=== PATIENT | female | born 1950 | race Two or more races ===

== ENCOUNTER → 2017-12-08 | Outpatient (CLI) | payer OTHER, MEDICARE ==
[2017-12-08 11:55] LABS: TOTAL 25(OH) VITAMIN D 38.4 NG/ML (30.0-100.0)
== END ==
LOC: M LRY 07:50
DX: E03.9 Hypothyroidism, unspecified (principal); E55.9 Vitamin D deficiency, unspecified
CPT/HCPCS: 84443

== ENCOUNTER 2017-12-29 10:33 | Emergency (ER) | payer OTHER, MEDICARE ==
[2017-12-29] MEDS: NORCO, ANEXSIA 5/325MG TABLET (HYDROcodone/ACETAMINOPHEN) PO (11:23)
[2017-12-29] MEDS: IBUPROFEN 800 MG TAB PO (11:23)
== END 2017-12-29 12:16 | disposition home or self-care (01) ==
LOC: M ED 10:33
DX: S49.92XA Unspecified injury of left shoulder and upper arm, initial encounter (principal); X58.XXXA Exposure to other specified factors, initial encounter; Y92.89 Other specified places as the place of occurrence of the external cause; I10 Essential (primary) hypertension; E78.70 Disorder of bile acid and cholesterol metabolism, unspecified; E07.9 Disorder of thyroid, unspecified; Z86.711 Personal history of pulmonary embolism; Z98.890 Other specified postprocedural states; Z79.890 Hormone replacement therapy; Z79.899 Other long term (current) drug therapy
CPT/HCPCS: 73030

== ENCOUNTER 2018-10-01 09:03 | Inpatient (IN) | payer MEDICARE, OTHER ==
[~2018-10-01] VITALS: Ht 154.9 cm; Wt 83.0 kg
[~2018-10-01 09:03] MED LIST: ATOR80TA59 PO; BISOPRL/HCTZ; DULO1CAP2 PO; FLUBLOK(EGG FREE)(QUAD)INFLUENZA VACC 0.5ML SYRINGE (90682)18YRS&OLDER IM ONE; LEVO25TA5 PO; LOSA100T50 PO; NORCOTAB PO; RANI150T PO
[2018-10-01] MEDS ORDERED: RANI-280 (09:12)
[2018-10-01] MEDS ORDERED: DULO30CA47 (09:12)
[2018-10-01] MEDS ORDERED: FLUTISP (09:12)
--- NOTE | 2018-10-01 09:46 | REP ---
PA and lateral chest: There are no comparisons. The lung beebe are clear. The cardiac size is normal. The dino, mediastinum, and skeletal structures are unremarkable. Impression: Negative PA and lateral chest. Electronically Signed by Renzo Daniels MD 10/01/2018 09:38 A
[2018-10-01 09:47] LABS: BASO % 0.5 % (0.0-1.0); EOS % 0.4 % (0.0-3.0); HEMATOCRIT 35.4 % (36.0-47.0); HEMOGLOBIN 11.8 g/dl (12.0-15.5); LYMPH # 0.8 10^3/uL (1.5-4.5); LYMPH % 14.6 % (24.0-44.0); MEAN CORPUSCULAR HEMOGLOBIN 30.1 pg (27.0-33.0); MEAN CORPUSCULAR HGB CONC 33.3 g/dl (32.0-36.5); MEAN CORPUSCULAR VOLUME 90.3 fl (80.0-96.0); MONO # 0.9 10^3/uL (0.0-0.8); MONO % 16.2 % (0.0-5.0); NEUTROPHILS # 3.9 10^3/uL (1.8-7.7); NEUTROPHILS % 68.1 % (36.0-66.0); PLATELET COUNT, AUTOMATED 165 10^3/uL (150-450); RED BLOOD COUNT 3.92 10^6/uL (4.00-5.40); WHITE BLOOD COUNT 5.7 10^3/uL (4.0-10.0)
[2018-10-01 09:57] LABS: INR 0.95; PROTHROMBIN TIME 12.8 SECONDS (12.1-14.4)
[2018-10-01] MEDS ORDERED: methylPREDNISolone INJ 125 MG/2 ML VIAL (J2930) IV ONE (10:30)
[2018-10-01] MEDS: IPRATROPIUM 0.5MG/ALBUTEROL 2.5MG INH SOL UD 3ML (DUONEB)(J7620) NEB PRN ×2 (10:43→11:48)
[2018-10-01 10:46] LABS: ABG BASE EXCESS 1.9 (-2.0-2.0); ABG HCO3 26.3 MEQ/L (22.0-26.0); ABG O2 SATURATION 98.2 % (95.0-99.0); ABG PARTIAL PRESSURE CO2 40.5 mmHg (35.0-45.0); ABG PARTIAL PRESSURE O2 106.3 mmHg (75.0-100.0); ABG STANDARD HCO3 26.2 MEQ/L (22.0-26.0); ABG TOTAL CO2 27.6 MEQ/L (23.0-31.0); ABG pH (ARTERIAL) 7.431 UNITS (7.350-7.450)
[2018-10-01 10:48] LABS: BLOOD UREA NITROGEN 11 MG/DL (7-18); CALCIUM LEVEL 8.6 MG/DL (8.8-10.2); CARBON DIOXIDE LEVEL 26 MEQ/L (21-32); CHLORIDE LEVEL 108 MEQ/L (98-107); CPK CREATINE PHOSPHOKINASE 244 U/L (26-192); CREATININE FOR GFR 0.94 MG/DL (0.55-1.30); GLOMERULAR FILTRATION RATE > 60.0 (>45); GLUCOSE, FASTING 115 MG/DL (70-100); MB/CK RELATIVE INDEX 0.94 (< OR =4); NT-PRO BNP 200 PG/ML (<125); POTASSIUM SERUM 3.8 MEQ/L (3.5-5.1); SODIUM LEVEL 140 MEQ/L (136-145); THYROID STIMULATING HORMONE 0.468 uIU/ML (0.358-3.740); TROPONIN I < 0.02 NG/ML (< 0.10)
[2018-10-01 11:19] LABS: INFLUENZA A AMPLIFICATION POSITIVE (NEGATIVE); INFLUENZA B AMPLIFICATION NEGATIVE (NEGATIVE)
[2018-10-01] MEDS ORDERED: ISOVUE-370 76% 100ML VIAL (Q9967) As Ordered ONE (11:50)
--- NOTE | 2018-10-01 12:52 | REP ---
CT of the chest with IV contrast, CT pulmonary artery angiography protocol: There are no emboli in the pulmonary trunk or central pulmonary arteries. There are no emboli in the pulmonary lobe or segment branches. There are no infiltrates. There are no pleural effusions. There are no masses or nodules. There is no mediastinal or hilar lymph origin. There is no axillary lymph node enlargement. The thoracic aorta is unremarkable. Cardiac size is normal. The visualized upper abdominal contents are unremarkable. Impression: There are no pulmonary emboli. Otherwise, negative CT study of the chest. Electronically Signed by Renzo Daniels MD 10/01/2018 12:43 P
[2018-10-01 13:59] VITALS: O2SAT 87
[2018-10-01] MEDS ORDERED: BISO2.5T PO (14:20)
[2018-10-01] MEDS ORDERED: VENTAER INH (14:20)
[2018-10-01] MEDS ORDERED: ALLE10TA2 PO (14:20)
[2018-10-01] MEDS ORDERED: VITA200038 PO (14:20)
[2018-10-01] MEDS ORDERED: NS 1,000 ML IV SCH (16:54)
[2018-10-01] MEDS ORDERED: ACETAMINOPHEN TAB 650MG DOSE (2X325MG) PO PRN (17:00)
[2018-10-01] MEDS ORDERED: IPRATROPIUM 0.5MG/ALBUTEROL 2.5MG INH SOL UD 3ML (DUONEB)(J7620) NEB PRN (17:00)
[2018-10-01 18:50] VITALS: BP 151/70
--- NOTE | 2018-10-01 18:51 | HPE ---
DATE OF ADMISSION: 10/01/2017 CHIEF COMPLAINT: Cough and shortness of breath. HISTORY OF PRESENT ILLNESS: This is a 67-year-old female with a past medical history of prior smoking and chronic obstructive pulmonary disease (COPD) not on home oxygen, hypertension, hyperlipidemia, prior myocardial infarction ([place]), prior pulmonary embolism (PE) no longer on anticoagulation, who presents with two days of productive cough and shortness of breath. The shortness of breath really got worse last night, which is why she came in for further evaluation today. No known sick contacts. No notable fevers. She did have diarrhea since last night. No chest pain. Patient in the emergency room was noted to require oxygen supplementation and desaturated without oxygen. She was noted to have flu A+. Her CT pulmonary embolism (PE) study was negative for any new pulmonary embolism or pneumonia. She was admitted because of her oxygen requirement and for supportive care for COPD exacerbation and flu. REVIEW OF SYSTEMS: Negative in 14 out of 14 systems except as noted above. PAST MEDICAL HISTORY: As noted above in history of present illness (HPI). PAST SURGICAL HISTORY: Patient had a small bowel obstruction and small bowel resection in 2004. MEDICATIONS: Patient's home medications are: - albuterol as needed - vitamin D 2000 units by mouth daily - losartan 100 mg by mouth nightly - bisoprolol/hydrochlorothiazide one tablet by mouth daily - atorvastatin 80 mg nightly - duloxetine 30 mg daily - Synthroid 25 mcg daily - loratadine 10 mg daily - Zantac 150 mg daily ALLERGIES: No known drug allergies. SOCIAL HISTORY: Patient is . She currently lives alone and takes care of herself. She has three adult children, two of them are local. She used to be a heavy smoker and smoked one pack a day for 30 years, but quit about a year ago. No alcohol or drugs. FAMILY HISTORY: No significant family history of any medical problems. PHYSICAL EXAMINATION: VITAL SIGNS: She is afebrile to 97.6, current blood pressure is 127/62, heart rate of 88, saturating 94% on 2 liters. GENERAL: She appears slightly uncomfortable, but is in no acute distress and not breathing with distress. HEENT: Oropharynx clear. CARDIOVASCULAR: Regular rate and rhythm. No murmurs, rubs, gallops. LUNGS: She has got decreased air movements bilaterally and some occasional expiratory wheezing. ABDOMEN: Soft, nontender, nondistended. Positive bowel sounds. EXTREMITIES: No clubbing, cyanosis or edema. NEUROLOGIC: She is alert and oriented times three, follows simple commands. No focal neurologic deficits. SKIN: Intact. PSYCHOLOGIC: Mood stable. LABORATORY DATA: Complete blood count (CBC) with a white count of 5.7, hemoglobin of 11.8, hematocrit of 35, platelets of 165. Chemistry with a potassium of 3.8, creatinine of 0.94. Flu A is positive. Imaging reveals chest x-ray that was negative and a CT PE study that shows no PE or infiltrate. ASSESSMENT AND PLAN: This is a 67-year-old female with past medical history of chronic obstructive pulmonary disease (COPD), hypertension, hypothyroidism, who presents with chief complaint of shortness of breath and cough, found to have flu A positive, likely triggering a COPD exacerbation. PROBLEMS: 1. Shortness of breath and cough. Likely secondary to COPD exacerbation with an infectious trigger of influenza A. We will admit the patient for supportive care with oxygen supplementation, nebulizers around the clock and as needed, prednisone 60 mg daily, and Tamiflu. We will wean her off oxygen and she can go home when she is clinically improved and off oxygen. 2. History of hypothyroidism. Continue home Synthroid. 3. History of hyperlipidemia. Continue home statin. 4. History of hypertension. At this time, I am going to hold her losartan and bisoprolol/hydrochlorothiazide given she is acutely infected and does not have high blood pressure at this time. These can be resumed as an outpatient. 5. History of depression. Continue home duloxetine. 6. Deep venous thrombosis (DVT) prophylaxis. We will place her on Lovenox. MATT
[2018-10-01] MEDS: IPRATROPIUM 0.5MG/ALBUTEROL 2.5MG INH SOL UD 3ML (DUONEB)(J7620) NEB SCH (19:40)
[2018-10-01] MEDS ORDERED: PREVNAR 13 VACCINE SYRINGE (CPT CODE:90670) IM ONE (20:00)
[2018-10-01] MEDS ORDERED: FLUBLOK(EGG FREE)(QUAD)INFLUENZA VACC 0.5ML SYRINGE (90682)18YRS&OLDER IM SCH (20:30)
[2018-10-01] MEDS: ATORVASTATIN 20 MG TAB PO SCH (20:54)
[2018-10-01] MEDS: OSELTAMIVIR PHOSPHATE 75 MG CAP (TAMIFLU) PO SCH (20:54)
[2018-10-01] MEDS ORDERED: PREVNAR 13 VACCINE SYRINGE (CPT CODE:90670) IM SCH (21:00)
--- NOTE | 2018-10-01 21:06 | ECGEPIP ---
Stationary ECG Study [facility] - ED Test Date: 2018-10-01 Pat Name: AILIN HENDRIX Department: Room: - Gender: F Set Off Blocker: MARGIE : 1950 Requested By: DAVEY Contreras Order Number: [id number] Reading MD: Margaret Xie Measurements Intervals [place] Rate: 80 P: 72 [place]: 186 QRS: 54 QRSD: 83 T: 76 QT: 361 QTc: 418 Interpretive Statements SINUS RHYTHM LOW VOLTAGE LIMB NSTTW ABNORMALITY Electronically Signed On 10-01-2018 21:06:00 EDT by Margaret Xie
[2018-10-02] VITALS: BP 127/57
[2018-10-02] MEDS: IPRATROPIUM 0.5MG/ALBUTEROL 2.5MG INH SOL UD 3ML (DUONEB)(J7620) NEB SCH ×4 (01:17→19:19)
[2018-10-02 04:00] VITALS: BP 132/57
[2018-10-02] MEDS: LEVOTHYROXINE 25MCG TABLET (0.025MG) PO SCH (06:28)
[2018-10-02 07:56] LABS: HEMOGLOBIN 11.6 g/dl (12.0-15.5); MEAN CORPUSCULAR HEMOGLOBIN 30.1 pg (27.0-33.0); MEAN CORPUSCULAR HGB CONC 33.1 g/dl (32.0-36.5); MEAN CORPUSCULAR VOLUME 90.9 fl (80.0-96.0); PLATELET COUNT, AUTOMATED 161 10^3/uL (150-450); RED BLOOD COUNT 3.85 10^6/uL (4.00-5.40); WHITE BLOOD COUNT 5.6 10^3/uL (4.0-10.0)
[2018-10-02 08:00] VITALS: BP 129/61
[2018-10-02] MEDS: DULoxetine 30 MG CAP (CYMBALTA) PO SCH (08:25)
[2018-10-02] MEDS: OSELTAMIVIR PHOSPHATE 75 MG CAP (TAMIFLU) PO SCH ×2 (08:25→21:17)
[2018-10-02] MEDS: FAMOTIDINE 20 MG TAB PO SCH (08:25)
[2018-10-02] MEDS: LORATADINE 10 MG TAB PO SCH (08:25)
[2018-10-02] MEDS: ENOXAPARIN 40 MG/0.4 ML SYRINGE (J1650) SC SCH (08:29)
[2018-10-02 09:00] LABS: BLOOD UREA NITROGEN 18 MG/DL (7-18); CALCIUM LEVEL 8.9 MG/DL (8.8-10.2); CARBON DIOXIDE LEVEL 26 MEQ/L (21-32); CHLORIDE LEVEL 106 MEQ/L (98-107); GLOMERULAR FILTRATION RATE > 60.0 (>45); GLUCOSE, FASTING 127 MG/DL (70-100); POTASSIUM SERUM 3.7 MEQ/L (3.5-5.1); SODIUM LEVEL 138 MEQ/L (136-145)
[2018-10-02] MEDS ORDERED: SLF 3 ML SYR IV PRN (09:00)
[2018-10-02] MEDS ORDERED: predniSONE 20 MG TAB PO SCH (09:00)
[2018-10-02 13:00] VITALS: BP 137/67
[2018-10-02 16:00] VITALS: BP 128/59
[2018-10-02] MEDS: SLF 3 ML SYR IV SCH ×2 (16:28→21:17)
--- NOTE | 2018-10-02 18:26 | IPNPDOC ---
Date Seen The patient was seen on 10/02/18. Progress Note SUBJECTIVE: recently moved here from [place] to be with her family since her two years ago. She "returned my oxygen," and does not have a md do resident urgent care or cco in [place]. Breathing is better but still with BLACK while walking to the bathroom. She was insturcted to use oxygen at bedtime. no recent PFTs in the past 5years. PHYSICAL EXAMINATION: VITAL SIGNS:PLS SEE BELOW GENERAL: She appears slightly uncomfortable, but is in no acute distress and not breathing with distress. HEENT: Oropharynx clear. CARDIOVASCULAR: Regular rate and rhythm. No murmurs, rubs, gallops. LUNGS: She has got decreased air movements bilaterally and some occasional expiratory wheezing. ABDOMEN: Soft, nontender, nondistended. Positive bowel sounds. EXTREMITIES: No clubbing, cyanosis or edema. NEUROLOGIC: She is alert and oriented times three, follows simple commands. No focal neurologic deficits. SKIN: Intact. PSYCHOLOGIC: Mood stable. LABORATORY DATA: Complete blood count (CBC) with a white count of 5.7, hemoglobin of 11.8, hematocrit of 35, platelets of 165. Chemistry with a potassium of 3.8, creatinine of 0.94. Flu A is positive. Imaging reveals chest x-ray that was negative and a CT PE study that shows no PE or infiltrate. ASSESSMENT AND PLAN: This is a 67-year-old female with a past medical history of prior smoking and chronic obstructive pulmonary disease (COPD) not on home oxygen, hypertension, hyperlipidemia, prior myocardial infarction ([place]), prior pulmonary embolism (PE) no longer on anticoagulation, who presents with two days of productive cough and shortness of breath. The shortness of breath really got worse last night, which is why she came in for further evaluation today. No known sick contacts. No notable fevers. She did have diarrhea since last night. No chest pain.Patient in the emergency room was noted to require oxygen supp lementation and desaturated without oxygen. She was noted to have flu A+. Her CT pulmonary embolism (PE) study was negative for any new pulmonary embolism or pneumonia. She was admitted because of her oxygen requirement and for supportive care for COPD exacerbation and flu. COPD exacerbation secondary to influenza o2 sat 88-92%, steroids, nebs, supplemental o2 if <88% o2sat. influenza A. tamilfu Acute hypoxic respiratory failure due to influenza a and copd exacerbation. titrate o2. History of hypothyroidism. Continue home Synthroid. History of hyperlipidemia. Continue home statin. History of hypertension. At this time, I am going to hold her losartan and bisoprolol/hydrochlorothiazide given she is acutely infected and does not have high blood pressure at this time. These can be resumed as an outpatient. History of depression. Continue home duloxetine. Deep venous thrombosis (DVT) prophylaxis. We will place her on Lovenox. VS, I&O, 24H, Fishbone Vital Signs/I&O Vital Signs Date Time Temp Pulse Resp B/P (MAP) Pulse Ox O2 Delivery O2 Flow Rate FiO2 10/02/18 16:11 1.0 10/02/18 16:00 97.1 82 23 128/59 (82) 94 10/01/18 13:59 Room Air I&O- Last 24 Hours up to 6 AM 10/02/18 06:00 Intake Total 720 ml Output Total 1200 ml Balance -480 ml Laboratory Data 24H LABS Laboratory Tests 2 10/02/18 07:39: Nucleated Red Blood Cells % (auto) 0.0, Anion Gap 6L, Glomerular Filtration Rate > 60.0, Blood Urea Nitrogen 18#, Creatinine 0.90, Sodium Level 138, Potassium Level 3.7, Chloride Level 106, Carbon Dioxide Level 26, Calcium Level 8.9 CBC/BMP Laboratory Tests 10/02/18 07:39 Red Blood Count 3.85 L, Mean Corpuscular Volume 90.9, Mean Corpuscular Hemoglobin 30.1, Mean Corpuscular Hemoglobin Concent 33.1, Red Cell Distribution Width 13.5, Calcium Level 8.9 ANN MARIE ABBOTT MD Oct 02, 2018 18:23
[2018-10-02 20:00] VITALS: BP 135/63
[2018-10-02] MEDS: methylPREDNISolone INJ 125 MG/2 ML VIAL (J2930) IV SCH (21:16)
[2018-10-02] MEDS: ATORVASTATIN 20 MG TAB PO SCH (21:17)
[2018-10-03] VITALS: BP 143/75
[2018-10-03] MEDS: IPRATROPIUM 0.5MG/ALBUTEROL 2.5MG INH SOL UD 3ML (DUONEB)(J7620) NEB SCH ×4 (02:35→19:11)
[2018-10-03 06:00] VITALS: BP 129/60
[2018-10-03] MEDS: LEVOTHYROXINE 25MCG TABLET (0.025MG) PO SCH (06:17)
[2018-10-03] MEDS: SLF 3 ML SYR IV SCH ×3 (06:17→22:00)
[2018-10-03 08:00] VITALS: BP 139/77
[2018-10-03] MEDS: OSELTAMIVIR PHOSPHATE 75 MG CAP (TAMIFLU) PO SCH ×2 (08:40→20:50)
[2018-10-03] MEDS: methylPREDNISolone INJ 125 MG/2 ML VIAL (J2930) IV SCH (08:40)
[2018-10-03] MEDS: ENOXAPARIN 40 MG/0.4 ML SYRINGE (J1650) SC SCH (08:41)
[2018-10-03] MEDS: FAMOTIDINE 20 MG TAB PO SCH (08:41)
[2018-10-03] MEDS: DULoxetine 30 MG CAP (CYMBALTA) PO SCH (08:41)
[2018-10-03] MEDS: LORATADINE 10 MG TAB PO SCH (08:41)
[2018-10-03 16:00] VITALS: BP 136/86
--- NOTE | 2018-10-03 18:42 | IPNPDOC ---
Text Note Date of Service The patient was seen on 10/03/18. NOTE Subjective: This is a 67-year-old female with a past medical history of prior smoking and chronic obstructive pulmonary disease (COPD) not on home oxygen, hypertension, hyperlipidemia, prior myocardial infarction ([place]), prior pulmonary embolism (PE) no longer on anticoagulation, who presents with two days of productive cough and shortness of breath. In the emergency room was noted to require oxygen supplementation and desaturated without oxygen. She was noted to have flu A+. Her CT pulmonary embolism (PE) study was negative for any new pulmonary embolism or pneumonia. She was admitted because of her oxygen requirement and for supportive care for COPD exacerbation and flu. Patient was seen and examined at the bedside. . Currently, patient is at the breathing is doing better. He denies any nausea, vomiting. Denies chest pain or palpitations. They note that they still are not back to their baseline. They do note a cough, but are unable to expectorate much. He denies any abdominal pain, constipation, diarrhea or discomfort with urination. Objective: Vitals (See below) General: Lying in bed, no acute distress, comfortable, AAOx3 HEENT: NC, AT CVS: RRR, +S1S2 Lungs: Poor air entry b/l, -w/r/r Abdomen: Soft, ND, NT Extremities: - Edema, - Calf tenderness Assessment and plan: Acute hypoxic respiratory failure - likely 2/2 Acute COPD exacerbation - likely 2/2 Influenza A - Presented to the ER with complaints of worsening shortness of breath; he has had improvement, however, is not at her baseline - Physical without any adventitious lung sounds with poor air entry bilaterally - Lab work unremarkable - CTA chest 10/01: There are no pulmonary emboli. Otherwise, negative CT study of the chest. - Continue with supplemental oxygen - Will reduce dose of Solu-Medrol - c/w Oseltamivir (Day #3) - c/w inhaled therapy as ordered Hypothyroidism - Continue home Synthroid DLP - Continue home statin HTN - Blood pressure well controlled - Currently she is off of her losartan bisoprolol and HCTZ Depression - Continue home duloxetine. DVT prophylaxis - c/w Lovenox VS,Fishbone, I+O VS, Fishbone, I+O Vital Signs Date Time Temp Pulse Resp B/P (MAP) Pulse Ox O2 Delivery O2 Flow Rate FiO2 10/03/18 16:00 97.8 96 21 136/86 (103) 93 10/02/18 16:11 1.0 10/01/18 13:59 Room Air I&O- Last 24 Hours up to 6 AM 10/03/18 06:00 Intake Total 1200 ml Output Total 2000 ml Balance -800 ml DAVID MCGUIRE MD Oct 03, 2018 18:42
[2018-10-03 20:00] VITALS: BP 122/59
[2018-10-03] MEDS ORDERED: methylPREDNISolone INJ 40 MG/1 ML VIAL (J2920) IV SCH (20:00)
[2018-10-03] MEDS: ATORVASTATIN 20 MG TAB PO SCH (20:50)
[2018-10-03] MEDS: RAMELTEON 8 MG TAB (ROZEREM) PO SCH (20:50)
[2018-10-04] VITALS: BP 129/68
[2018-10-04] MEDS: IPRATROPIUM 0.5MG/ALBUTEROL 2.5MG INH SOL UD 3ML (DUONEB)(J7620) NEB SCH ×4 (02:44→19:46)
[2018-10-04 04:00] VITALS: BP 107/58
[2018-10-04] MEDS: SLF 3 ML SYR IV SCH ×3 (06:00→22:09)
[2018-10-04] MEDS: LEVOTHYROXINE 25MCG TABLET (0.025MG) PO SCH (06:05)
[2018-10-04 08:00] VITALS: BP 133/61
[2018-10-04 08:27] LABS: HEMATOCRIT 37.9 % (36.0-47.0); HEMOGLOBIN 12.7 g/dl (12.0-15.5); LYMPH # 1.5 10^3/uL (1.5-4.5); LYMPH % 17.3 % (24.0-44.0); MEAN CORPUSCULAR HEMOGLOBIN 30.4 pg (27.0-33.0); MEAN CORPUSCULAR HGB CONC 33.5 g/dl (32.0-36.5); MEAN CORPUSCULAR VOLUME 90.7 fl (80.0-96.0); MONO # 0.6 10^3/uL (0.0-0.8); MONO % 7.6 % (0.0-5.0); NEUTROPHILS # 6.2 10^3/uL (1.8-7.7); NEUTROPHILS % 74.6 % (36.0-66.0); PLATELET COUNT, AUTOMATED 202 10^3/uL (150-450); RED BLOOD COUNT 4.18 10^6/uL (4.00-5.40); WHITE BLOOD COUNT 8.4 10^3/uL (4.0-10.0)
[2018-10-04 08:47] LABS: CALCIUM LEVEL 9.1 MG/DL (8.8-10.2); CREATININE FOR GFR 1.08 MG/DL (0.55-1.30); GLOMERULAR FILTRATION RATE 53.7 (>45); MAGNESIUM LEVEL 1.7 MG/DL (1.8-2.4); POTASSIUM SERUM 4.1 MEQ/L (3.5-5.1)
[2018-10-04] MEDS: OSELTAMIVIR PHOSPHATE 75 MG CAP (TAMIFLU) PO SCH ×2 (08:50→22:10)
[2018-10-04] MEDS: FAMOTIDINE 20 MG TAB PO SCH (08:50)
[2018-10-04] MEDS: predniSONE 20 MG TAB PO SCH ×2 (08:50→22:10)
[2018-10-04] MEDS: DULoxetine 30 MG CAP (CYMBALTA) PO SCH (08:51)
[2018-10-04] MEDS: LORATADINE 10 MG TAB PO SCH (08:51)
[2018-10-04] MEDS: ENOXAPARIN 40 MG/0.4 ML SYRINGE (J1650) SC SCH (08:53)
[2018-10-04] MEDS: guaiFENesin ER 600 MG TAB PO SCH ×2 (09:48→22:10)
[2018-10-04 13:45] VITALS: BP 135/63
[2018-10-04 16:55] VITALS: BP 137/64
--- NOTE | 2018-10-04 17:01 | IPNPDOC ---
Text Note Date of Service The patient was seen on 10/04/18. NOTE Subjective: This is a 67-year-old female with a past medical history of prior smoking and chronic obstructive pulmonary disease (COPD) not on home oxygen, hypertension, hyperlipidemia, prior myocardial infarction ([place]), prior pulmonary embolism (PE) no longer on anticoagulation, who presents with two days of productive cough and shortness of breath. In the emergency room was noted to require oxygen supplementation and desaturated without oxygen. She was noted to have flu A+. Her CT pulmonary embolism (PE) study was negative for any new pulmonary embolism or pneumonia. She was admitted because of her oxygen requirement and for supportive care for COPD exacerbation and flu. Patient was seen and examined at the bedside. Patient's breathing has improved significantly. They note that they are not able to expectorate or cough. They deny chest pain or palpitations. They deny nausea, vomiting, abdominal pain, constipation, diarrhea or any discomfort with urination. Objective: Vitals (See below) General: Lying in bed, no acute distress, comfortable, AAOx3 HEENT: NC, AT CVS: RRR, +S1S2 Lungs: Poor air entry b/l, auscultation does not reveal any wheezing, rhonchi, rales Abdomen: Soft, nondistended, without tenderness Extremities: No evidence of edema, - Calf tenderness Assessment and plan: Acute hypoxic respiratory failure - likely 2/2 Acute COPD exacerbation - likely 2/2 Influenza A - Presented to the ER with complaints of worsening shortness of breath; he has had improvement, however, is not at her baseline - Physical without any adventitious lung sounds with poor air entry bilaterally - Lab work unremarkable - CTA chest 10/01: There are no pulmonary emboli. Otherwise, negative CT study of the chest. - Continue with supplemental oxygen - Will start prednisone; will discontinue Solu-Medrol - continue with taper as an outpatient - c/w Oseltamivir (Day #4) - c/w inhaled therapy as ordered Hypothyroidism - Continue home Synthroid DLP - Continue home statin HTN - Blood pressure well controlled - Currently she is off of her losartan bisoprolol and HCTZ Depression - Continue home duloxetine. DVT prophylaxis - c/w Lovenox VS,Fishbone, I+O VS, Fishbone, I+O Laboratory Tests 10/04/18 08:05 Red Blood Count 4.18, Mean Corpuscular Volume 90.7, Mean Corpuscular Hemoglobin 30.4, Mean Corpuscular Hemoglobin Concent 33.5, Red Cell Distribution Width 13.6, Neutrophils (%) (Auto) 74.6 H, Lymphocytes (%) (Auto) 17.3 L, Monocytes (%) (Auto) 7.6 H, Eosinophils (%) (Auto) 0.0, Basophils (%) (Auto) 0.0, Neutrophils # (Auto) 6.2, Lymphocytes # (Auto) 1.5, Monocytes # (Auto) 0.6, Eosinophils # (Auto) 0.0, Basophils # (Auto) 0.0, Calcium Level 9.1 Vital Signs Date Time Temp Pulse Resp B/P (MAP) Pulse Ox O2 Delivery O2 Flow Rate FiO2 10/04/18 13:45 97.3 80 18 135/63 (87) 95 10/02/18 16:11 1.0 10/01/18 13:59 Room Air I&O- Last 24 Hours up to 6 AM 10/04/18 06:00 Intake Total 2040 ml Output Total 2550 ml Balance -510 ml DAVID MCGUIRE MD Oct 04, 2018 17:01
[2018-10-04 20:00] VITALS: BP 142/69
[2018-10-04] MEDS: ATORVASTATIN 20 MG TAB PO SCH (22:10)
[2018-10-04] MEDS: RAMELTEON 8 MG TAB (ROZEREM) PO SCH (22:10)
[2018-10-05] VITALS: BP 135/60
[2018-10-05] MEDS: IPRATROPIUM 0.5MG/ALBUTEROL 2.5MG INH SOL UD 3ML (DUONEB)(J7620) NEB SCH ×2 (02:00→07:40)
[2018-10-05 04:00] VITALS: BP 122/65
[2018-10-05] MEDS: SLF 3 ML SYR IV SCH (06:14)
[2018-10-05] MEDS: LEVOTHYROXINE 25MCG TABLET (0.025MG) PO SCH (06:14)
[2018-10-05 07:26] LABS: HEMATOCRIT 37.6 % (36.0-47.0); HEMOGLOBIN 12.5 g/dl (12.0-15.5); MEAN CORPUSCULAR HEMOGLOBIN 30.3 pg (27.0-33.0); MEAN CORPUSCULAR HGB CONC 33.2 g/dl (32.0-36.5); MEAN CORPUSCULAR VOLUME 91.3 fl (80.0-96.0); PLATELET COUNT, AUTOMATED 209 10^3/uL (150-450); RED BLOOD COUNT 4.12 10^6/uL (4.00-5.40); WHITE BLOOD COUNT 7.4 10^3/uL (4.0-10.0)
[2018-10-05 08:00] LABS: CREATININE FOR GFR 1.04 MG/DL (0.55-1.30); GLOMERULAR FILTRATION RATE 56.1 (>45); MAGNESIUM LEVEL 1.8 MG/DL (1.8-2.4); POTASSIUM SERUM 5.1 MEQ/L (3.5-5.1)
[2018-10-05] MEDS ORDERED: MUCI600T37 PO (08:29)
[2018-10-05] MEDS ORDERED: PRED10TA2 PO (08:29)
[2018-10-05] MEDS ORDERED: OSEL75CA2 PO (08:29)
[2018-10-05 09:00] VITALS: BP 116/64
[2018-10-05] MEDS: FAMOTIDINE 20 MG TAB PO SCH (09:36)
[2018-10-05] MEDS: LORATADINE 10 MG TAB PO SCH (09:36)
[2018-10-05] MEDS: predniSONE 20 MG TAB PO SCH (09:36)
[2018-10-05] MEDS: OSELTAMIVIR PHOSPHATE 75 MG CAP (TAMIFLU) PO SCH (09:36)
[2018-10-05] MEDS: DULoxetine 30 MG CAP (CYMBALTA) PO SCH (09:37)
[2018-10-05] MEDS: guaiFENesin ER 600 MG TAB PO SCH (09:37)
[2018-10-05] MEDS: ENOXAPARIN 40 MG/0.4 ML SYRINGE (J1650) SC SCH (09:37)
[2018-10-05] MEDS ORDERED: PREVNAR 13 VACCINE SYRINGE (CPT CODE:90670) IM ONE (11:00)
[2018-10-05] MEDS ORDERED: FLUBLOK(EGG FREE)(QUAD)INFLUENZA VACC 0.5ML SYRINGE (90682)18YRS&OLDER IM ONE (11:00)
--- NOTE | 2018-10-05 13:40 | DS.PDOC ---
Discharge Summary General Date of Admission Oct 01, 2018 at 16:54 Date of Discharge 10/05/2018 Discharge Summary PROCEDURES PERFORMED DURING STAY: [None]. ADMITTING DIAGNOSES / DISCHARGE DIAGNOSES: Acute hypoxic respiratory failure - likely 2/2 Acute COPD exacerbation - likely 2/2 Influenza A Hypothyroidism DLP HTN Depression DVT prophylaxis COMPLICATIONS/CHIEF COMPLAINT: Shortness of breath HISTORY OF PRESENT ILLNESS: This is a 67-year-old female with a past medical history of prior smoking and c hronic obstructive pulmonary disease (COPD) not on home oxygen, hypertension, hyperlipidemia, prior myocardial infarction ([place]), prior pulmonary embolism (PE) no longer on anticoagulation, who presents with two days of productive cough and shortness of breath. In the emergency room was noted to require oxygen supplementation and desaturated without oxygen. She was noted to have flu A+. Her CT pulmonary embolism (PE) study was negative for any new pulmonary embolism or pneumonia. She was admitted because of her oxygen requirement and for supportive care for COPD exacerbation and flu. HOSPITAL COURSE: Acute hypoxic respiratory failure - likely 2/2 Acute COPD exacerbation - likely 2/2 Influenza A - Presented to the ER with complaints of worsening shortness of breath; he has had improvement, however, is not at her baseline - Physical without any adventitious lung sounds with poor air entry bilaterally - Has been tapered off supplemental oxygen - Lab work unremarkable - CTA chest 10/01: There are no pulmonary emboli. Otherwise, negative CT study of the chest. - c/w prednisone - will provide taper upon discharge; s/p Solu-Medrol - c/w Oseltamivir (Day #5); will complete course as an outpatient - c/w inhaled therapy as ordered Hypothyroidism - c/w Levothyroxine DLP - c/w statin HTN - Blood pressure well controlled - Will hold off on Bisoprolol / HCTZ - Will resume ARB upon discharge Depression - c/w Duloxetine DVT prophylaxis - c/w Lovenox DISCHARGE MEDICATIONS: Please see below. ALLERGIES: Please see below. PHYSICAL EXAMINATION ON DISCHARGE: Vitals (See below) General: Lying in bed, no acute distress, comfortable, AAOx3 HEENT: NC, AT CVS: RRR, +S1S2 Lungs: Fair air entry bilaterally without evidence of wheezing, rhonchi or rales upon auscultation Abdomen: Soft, no evidence of distention or tenderness Extremities: No evidence of lower extremity edema, - Calf tenderness LABORATORY DATA: Please see below. ACTIVITY: [As tolerated]. DISCHARGE PLAN: Follow-up with Kenzie Diaz within 7 days Remain compliant with treatment plan and medications Return to the ER if you experience any problems DISPOSITION: Home DISCHARGE CONDITION: [Stable]. TIME SPENT ON DISCHARGE: Greater than [35] minutes. Vital Signs/I&Os Vital Signs Date Time Temp Pulse Resp B/P (MAP) Pulse Ox O2 Delivery O2 Flow Rate FiO2 10/05/18 09:00 97.0 92 20 116/64 (81) 93 10/02/18 16:11 1.0 10/01/18 13:59 Room Air I&O- Last 24 Hours up to 6 AM 10/05/18 05:59 Intake Total 1560 ml Output Total 2500 ml Balance -940 ml Laboratory Data Labs 24H Laboratory Tests 2 10/05/18 07:02: Nucleated Red Blood Cells % (auto) 0.0, Anion Gap 8, Glomerular Filtration Rate 56.1, Blood Urea Nitrogen 23H, Creatinine 1.04, Sodium Level 139, Potassium Level 5.1#, Chloride Level 103, Carbon Dioxide Level 28, Calcium Level 9.0, Magnesium Level 1.8 CBC/BMP Laboratory Tests 10/05/18 07:02 Red Blood Count 4.12, Mean Corpuscular Volume 91.3, Mean Corpuscular Hemoglobin 30.3, Mean Corpuscular Hemoglobin Concent 33.2, Red Cell Distribution Width 13.4, Calcium Level 9.0 Discharge Medications Scheduled Atorvastatin Calcium (Atorvastatin Calcium) 80 Mg Tab, 80 MG PO QHS, (Reported) Cholecalciferol (Vitamin D-3) 2,000 Unit Tab, 2,000 UNIT PO DAILY, (Reported) Duloxetine Hcl (Duloxetine HCl) 30 Mg Cap, 30 MG PO DAILY, (Reported) Guaifenesin (Mucinex) 600 Mg Tab, 600 MG PO BID Levothyroxine Sodium (Synthroid) 25 Mcg Tab, 25 MCG PO QAM, (Reported) Loratadine (Allergy Relief) 10 Mg Tab, 10 MG PO DAILY, (Reported) Losartan Potassium (Losartan Potassium) 100 Mg Tab, 100 MG PO QHS, (Reported) Oseltamivir Phosphate (Oseltamivir Phosphate) 75 Mg Cap, 75 MG PO BID Prednisone (Prednisone) 10 Mg Tab, 10 MG PO TAPER Take 4 tabs daily x 3 days, then 3 tabs daily x 3 days, then 2 tabs daily x 3 days, then 1 tab daily x 3 days and stop Ranitidine HCl (Ranitidine HCl) 150 Mg Tab, 150 MG PO DAILY, (Reported) Scheduled PRN Albuterol Sulfate (Ventolin Hfa) 108 Mcg/Act Aer, 2 PUFF INH Q4H PRN for SHORTNESS OF BREATH, (Reported) Allergies Coded Allergies: No Known Allergies (Unverified , 12/29/17) DAVID MCGUIRE MD Oct 05, 2018 13:40
== END 2018-10-05 12:40 | disposition home or self-care (01) | DRG 190 ==
LOC: M ED 09:03 → M ED INP 16:54 → M PED 18:45
PROVIDERS: ADMIT General Practice; ATTEND Internal Medicine
DX: J44.1 Chronic obstructive pulmonary disease with (acute) exacerbation (principal); J96.01 Acute respiratory failure with hypoxia; E03.9 Hypothyroidism, unspecified; J10.1 Influenza due to other identified influenza virus with other respiratory manifestations; E78.5 Hyperlipidemia, unspecified; F32.9 Major depressive disorder, single episode, unspecified; I10 Essential (primary) hypertension; J44.0 Chronic obstructive pulmonary disease with (acute) lower respiratory infection; I25.2 Old myocardial infarction; Z86.711 Personal history of pulmonary embolism; Z79.899 Other long term (current) drug therapy; Z87.891 Personal history of nicotine dependence

== ENCOUNTER 2018-11-05 14:54 | Emergency (ER) | payer MEDICARE ==
[~2018-11-05] VITALS: Ht 154.9 cm; Wt 80.5 kg
[~2018-11-05 14:54] MED LIST changes: +BISO2.5T PO; +DULO30CA47; -FLUBLOK(EGG FREE)(QUAD)INFLUENZA VACC 0.5ML SYRINGE (90682)18YRS&OLDER IM ONE; +FLUTISP; +HYDR-3715 PO; +LORA-753 PO; +MUCI600T37 PO; -NORCOTAB PO; +OSEL75CA2 PO; +PRED10TA2 PO; +RANI-280; +VENTAER INH; +VITA200038 PO
[2018-11-05 15:24] LABS: BASO # 0.1 10^3/uL (0.0-0.2); BASO % 0.6 % (0.0-1.0); EOS # 0.1 10^3/uL (0.0-0.50); EOS % 1.6 % (0.0-3.0); HEMATOCRIT 35.1 % (36.0-47.0); HEMOGLOBIN 11.6 g/dl (12.0-15.5); LYMPH # 2.4 10^3/uL (1.5-4.5); MEAN CORPUSCULAR HEMOGLOBIN 30.6 pg (27.0-33.0); MEAN CORPUSCULAR VOLUME 92.6 fl (80.0-96.0); MONO # 0.9 10^3/uL (0.0-0.8); MONO % 9.9 % (0.0-5.0); NEUTROPHILS # 5.1 10^3/uL (1.8-7.7); NEUTROPHILS % 59.4 % (36.0-66.0); PLATELET COUNT, AUTOMATED 215 10^3/uL (150-450); RED BLOOD COUNT 3.79 10^6/uL (4.00-5.40); WHITE BLOOD COUNT 8.6 10^3/uL (4.0-10.0)
[2018-11-05 15:35] LABS: INR 0.98; PROTHROMBIN TIME 13.1 SECONDS (12.1-14.4)
[2018-11-05 15:36] LABS: PARTIAL THROMBOPLASTIN TIME 29.1 SECONDS (25.4-37.6)
[2018-11-05 15:41] LABS: BLOOD UREA NITROGEN 18 MG/DL (7-18); CARBON DIOXIDE LEVEL 29 MEQ/L (21-32); CHLORIDE LEVEL 107 MEQ/L (98-107); GLOMERULAR FILTRATION RATE 58.7 (>45); GLUCOSE, FASTING 107 MG/DL (70-100); POTASSIUM SERUM 4.5 MEQ/L (3.5-5.1); SODIUM LEVEL 142 MEQ/L (136-145)
[2018-11-05] MEDS ORDERED: NS 1,000 ML IV ONE (17:00)
[2018-11-05] MEDS ORDERED: ISOVUE-370 76% 100ML VIAL (Q9967) As Ordered ONE (17:13)
[2018-11-05 18:16] LABS: TROPONIN I < 0.02 NG/ML (< 0.10)
--- NOTE | 2018-11-05 18:35 | REPVR ---
EXAM: CT Angiography Chest With Contrast EXAM DATE/TIME: 11/05/2018 5:20 PM CLINICAL HISTORY: 67 years old, female; Signs and symptoms and condition or disease; Other: Lower extremity dvt; Shortness of breath; Additional info: SOB, dvt rle TECHNIQUE: Imaging protocol: Axial computed tomographic angiography images of the chest with intravenous contrast using CT angiography protocol. Coronal and sagittal reformatted images were created and reviewed. 3D rendering: MIP reconstructed images were created and reviewed. Radiation optimization: All CT scans at this facility use at least one of these dose optimization techniques: automated exposure control; mA and/or kV adjustment per patient size (includes targeted exams where dose is matched to clinical indication); or iterative reconstruction. Contrast material: ISOVUE 370 Contrast volume: 75 ml Contrast route: IV COMPARISON: CT ANGIO CHEST 10/01/2018 11:53 AM FINDINGS: Pulmonary arteries: Normal. No pulmonary emboli. Aorta: Normal. No aortic aneurysm. No aortic dissection. Lungs: There is diffuse centrilobular type emphysema in both lungs, right side greater than left. Discoid atelectasis or scar in the dependent portion of the left lung base. There is hyperinflation Pleural space: Normal. No pneumothorax. No pleural effusion. Heart: Normal. No cardiomegaly. No pericardial effusion. Lymph nodes: Unremarkable. No enlarged lymph nodes. Bones/joints: Unremarkable. No acute fracture. Soft tissues: Unremarkable. IMPRESSION: 1. No acute pulmonary embolism. 2. Diffuse centrilobular type emphysema with hyperinflation Electronically signed by: Nanette Yuan On 11/05/2018 18:35:13 PM
[2018-11-05] MEDS ORDERED: XARE15TA PO (19:08)
[2018-11-05] MEDS ORDERED: RIVAROXABAN 15 MG TAB (XARELTO) PO ONE (19:15)
--- NOTE | 2018-11-05 19:30 | ECGEPIP ---
Stationary ECG Study [facility] - ED Test Date: 2018-11-05 Pat Name: AILIN HENDRIX Department: Room: - Gender: F Allergist/Pediatric Pulmonologist: alberto : 1950 Requested By: PARISA BOSE PA-C. Order Number: [id number] Reading MD: Emil Ennis Measurements Intervals [place] Rate: 77 P: 80 PA: 191 QRS: 67 QRSD: 81 T: 78 QT: 373 QTc: 425 Interpretive Statements SINUS RHYTHM WITH MARKED SINUS ARRHYTHMIA SIMILAR TO 10/01/18 Electronically Signed On 11-05-2018 19:30:43 EDT by Emil Ennis
[2018-11-05 19:31] VITALS: BP 135/76
--- NOTE | 2018-11-06 10:30 | REP ---
RIGHT LOWER EXTREMITY DUPLEX VENOUS ULTRASOUND: HISTORY: Right lower extremity soreness and swelling. The patient gives a history of a previous episode of a right lower extremity venous thrombosis. No comparison study. FINDINGS: There is extensive occlusive deep venous thrombosis involving the femoral vein from proximal through the popliteal vein. There is some venous thrombosis extending into the proximal greater saphenous vein. The common femoral vein segment is not involved. IMPRESSION: Positive study. Extensive occlusive deep venous thrombosis of the right femoral vein and proximal portion of the greater saphenous vein. There is a 3.6 cm Shaffre's cyst in the right popliteal fossa. Electronically Signed by Ad Barker MD 11/06/2018 10:46 A
== END 2018-11-05 19:33 | disposition home or self-care (01) ==
LOC: M ED 14:54
DX: I82.411 Acute embolism and thrombosis of right femoral vein (principal); I82.811 Embolism and thrombosis of superficial veins of right lower extremity; I49.9 Cardiac arrhythmia, unspecified; Z86.718 Personal history of other venous thrombosis and embolism
CPT/HCPCS: 71275; 80048; 84484; 85025; 85610; 85730; 93005; 93971; 96360; 96361; 99284; Q9967

== ENCOUNTER → 2019-01-15 | Outpatient (CLI) | payer MEDICARE ==
[~2019-01-15] MED LIST changes: +XARE15TA PO
[2019-01-15 12:40] LABS: HEMATOCRIT 38.4 % (36.0-47.0); HEMOGLOBIN 12.4 g/dl (12.0-15.5); MEAN CORPUSCULAR HGB CONC 32.3 g/dl (32.0-36.5); PLATELET COUNT, AUTOMATED 217 10^3/uL (150-450); RED BLOOD COUNT 4.13 10^6/uL (4.00-5.40)
[2019-01-15 12:41] LABS: APPEARANCE, URINE HAZY (CLEAR); BACTERIA, URINE AUTO NEGATIVE (NEGATIVE); BILIRUBIN, URINE AUTO NEGATIVE (NEGATIVE); BLOOD, URINE BLOOD NEGATIVE (NEGATIVE); COLOR, URINE YELLOW (YELLOW); GLUCOSE, URINE (UA) AUTO NEGATIVE (NEGATIVE); KETONE, URINE AUTO NEGATIVE (NEGATIVE); LEUKOCYTE ESTERASE, URINE AUTO NEGATIVE (NEGATIVE); MUCUS, URINE SMALL (NEGATIVE); NITRITE, URINE AUTO NEGATIVE (NEGATIVE); PROTEIN, URINE AUTO NEGATIVE (NEGATIVE); RBC, URINE AUTO 1 /HPF (0-3); SPECIFIC GRAVITY URINE AUTO 1.014 (1.002-1.035); SQUAMOUS EPITHELIAL CELL UR AU 2 /HPF (0-6); UROBILINOGEN, URINE AUTO 0.2 mg/dL (0.0-2.0); WBC, URINE AUTO 2 /HPF (0-3)
[2019-01-15 12:56] LABS: ALBUMIN 3.7 GM/DL (3.2-5.2); BILIRUBIN,TOTAL 0.5 MG/DL (0.2-1.0); CALCIUM LEVEL 9.4 MG/DL (8.8-10.2); CHOLESTEROL RISK RATIO 2.788 (<5); CREATININE FOR GFR 0.98 MG/DL (0.55-1.30); GLOMERULAR FILTRATION RATE 59.9 (>45); POTASSIUM SERUM 4.4 MEQ/L (3.5-5.1); THYROID STIMULATING HORMONE 0.814 uIU/ML (0.358-3.740); TOTAL PROTEIN 6.9 GM/DL (6.4-8.2)
[2019-01-15 13:10] LABS: TOTAL 25(OH) VITAMIN D 62.5 NG/ML (30.0-100.0)
== END ==
LOC: M LRY 09:00
PROVIDERS: ATTEND Nurse Practitioner Family
DX: Z00.00 Encounter for general adult medical examination without abnormal findings (principal); E55.9 Vitamin D deficiency, unspecified

== ENCOUNTER → 2019-03-09 | Outpatient (CLI) | payer MEDICARE ==
[~2019-03-09] MED LIST changes: -DULO1CAP2 PO; +DULO1CAP5 PO
--- NOTE | 2019-03-09 12:34 | REPMRS ---
Patient History The patient states she had a clinical breast exam in December2018. Family history of unknown cancer in mother, unknown cancer in father. Taking unspecified hormones for 1 year. Out of town priors scanned into PACs Digital Mammo Screening Bilat: March 09, 2019 - Exam #: [id number] Bilateral CC and MLO view(s) were taken. Technologist: Marissa Whitaker, Technologist No prior studies available for comparison. FINDINGS: There are scattered fibroglandular densities. There is no evidence of dominant mass, architectural distortion, or grouped microcalcification typical of malignancy. 3-D tomosynthesis shows no additional findings. Assessment: BI-RADS/ACR category 1 mammogram. Negative Mammogram. Recommendation Routine screening mammogram of both breasts in 1 year (for women over age 40). This patient's Lifetime Breast Cancer Risk is estimated at 3.8 %. This mammogram was interpreted with the aid of an FDA-approved computer-aided dectection system. Electronically Signed By: Magdy Barker MD 03/09/19 [id number]
== END ==
LOC: M RAD 11:16
PROVIDERS: ATTEND Nurse Practitioner Family
DX: Z12.31 Encounter for screening mammogram for malignant neoplasm of breast (principal)

== ENCOUNTER → 2019-05-29 | Outpatient (REF) | payer MEDICARE | LOC: M LAB REF 16:28 | PROVIDERS: ATTEND Internal Medicine | DX: I82.401 Acute embolism and thrombosis of unspecified deep veins of right lower extremity (principal); Z86.711 Personal history of pulmonary embolism ==

== ENCOUNTER → 2021-05-25 | Outpatient (CLI) | payer MEDICARE ==
--- NOTE | 2021-05-25 15:04 | REP ---
INDICATION: COUGH AND SOB EVAL FOR CHF. COMPARISON: 08/17/2019 the latest prior TECHNIQUE: PA and lateral FINDINGS: The cardiomediastinal silhouette is stable. There is bibasilar fibrotic change status quo. No acute patchy parenchymal opacities or pleural effusions have developed. There is no change in the osseous structures. IMPRESSION: No evidence of acute disease or significant change compared to the prior exam. Since the patient has a chronic cough consider follow-up with chest CT. <Electronically signed by Baldo Peralta > 05/25/21 1500
== END ==
LOC: M WUC 13:29
PROVIDERS: ATTEND Internal Medicine
DX: R06.02 Shortness of breath (principal); R05.3 Chronic cough

== ENCOUNTER → 2021-05-25 | Outpatient (REF) | payer MEDICARE | LOC: M LAB REF 13:28 | PROVIDERS: ATTEND Internal Medicine | DX: M25.50 Pain in unspecified joint (principal) ==

== ENCOUNTER → 2021-07-27 | Outpatient (CLI) | payer MEDICARE ==
[~2021-07-27] MED LIST changes: +ISOVUE-370 76% 100ML VIAL ONE
--- NOTE | 2021-07-27 16:26 | REP ---
INDICATION: SOB COUGH COMPARISON: Multiple latest 11/05/2018 CT angio chest TECHNIQUE: Standard helical technique after the intravenous administration of 100 cc Isovue 370 FINDINGS: The mediastinum and pulmonary dino are stable. There is no mass or adenopathy. There are no pleural or pericardial effusions. There is no change in the imaged upper abdomen or imaged osseous structures. Evaluation of the lung beebe shows emphysematous changes with basilar fibrotic changes status quo. No new abnormal nodules, masses, or opacities have developed. There is cylindrical bronchiectasis status quo. IMPRESSION: Stable appearing chronic changes. <Electronically signed by Baldo Peralta > 07/27/21 1963
== END ==
LOC: M PLAIMG 14:02
PROVIDERS: ATTEND Internal Medicine
DX: R06.02 Shortness of breath (principal); J43.9 Emphysema, unspecified; J47.9 Bronchiectasis, uncomplicated; J84.10 Pulmonary fibrosis, unspecified
CPT/HCPCS: 71260; Q9967

== ENCOUNTER → 2022-04-29 | Outpatient (CLI) | payer MEDICARE ==
[~2022-04-29] MED LIST changes: -ISOVUE-370 76% 100ML VIAL ONE; +LOSA100T45 PO; -LOSA100T50 PO
== END ==
LOC: M LABSMTC 09:44
PROVIDERS: ATTEND Anesthesiology
DX: Z01.812 Encounter for preprocedural laboratory examination (principal); Z20.822 Contact with and (suspected) exposure to COVID-19

== ENCOUNTER 2022-05-04 07:49 | Day surgery (SDC) | payer MEDICARE ==
[~2022-05-04] VITALS: Ht 154.9 cm; Wt 88.4 kg
[~2022-05-04 07:49] MED LIST changes: +NS 1,000 ML IV ONE
[2022-05-04] MEDS ORDERED: LIDOCAINE 2% 100MG/5ML SDV (FOR ANES.) As Ordered ONE (09:08)
[2022-05-04] MEDS ORDERED: propofoL 500 MG/50 ML VIAL As Ordered ONE (09:08)
[2022-05-04] MEDS ORDERED: hydrALAZINE 20MG/ML 1ML VIAL (J0360 PER 20MG) As Ordered ONE (09:20)
[2022-05-04 10:04] VITALS: BP 139/65
== END 2022-05-04 10:03 | disposition home or self-care (01) ==
LOC: M OPP 07:49
PROVIDERS: ATTEND Surgery
DX: K63.5 Polyp of colon (principal); K57.30 Diverticulosis of large intestine without perforation or abscess without bleeding; K64.0 First degree hemorrhoids; Z79.01 Long term (current) use of anticoagulants; Z79.02 Long term (current) use of antithrombotics/antiplatelets; Z79.51 Long term (current) use of inhaled steroids; Z79.899 Other long term (current) drug therapy; I10 Essential (primary) hypertension; E03.9 Hypothyroidism, unspecified; I73.9 Peripheral vascular disease, unspecified; J44.9 Chronic obstructive pulmonary disease, unspecified; Z86.711 Personal history of pulmonary embolism; Z87.718 Personal history of other specified (corrected) congenital malformations of genitourinary system; Z87.891 Personal history of nicotine dependence; Z94.9 Transplanted organ and tissue status, unspecified
CPT/HCPCS: 45380; 88305; J0360

== ENCOUNTER → 2022-09-29 | Outpatient (CLI) | payer MEDICARE ==
[~2022-09-29] MED LIST changes: -NS 1,000 ML IV ONE
== END ==
LOC: M WUC 12:58
PROVIDERS: ATTEND Internal Medicine
DX: M25.512 Pain in left shoulder (principal)

== ENCOUNTER → 2023-10-06 | Outpatient (CLI) | payer MEDICARE ==
[~2023-10-06] MED LIST changes: -LOSA100T45 PO; +LOSA100T46 PO
== END ==
LOC: M WUC 09:59
PROVIDERS: ATTEND Internal Medicine
DX: M25.552 Pain in left hip (principal); M16.12 Unilateral primary osteoarthritis, left hip

== ENCOUNTER → 2023-10-25 | Outpatient (CLI) | payer MEDICARE | LOC: M RAD 13:38 | PROVIDERS: ATTEND Internal Medicine | DX: Z12.2 Encounter for screening for malignant neoplasm of respiratory organs (principal); F17.211 Nicotine dependence, cigarettes, in remission; R91.8 Other nonspecific abnormal finding of lung field ==